=== PATIENT | female | born 1990 | race Caucasian/White ===

== ENCOUNTER → 2017-07-10 | Outpatient (CLI) | payer MEDICAID | LOC: MC.RAD 09:26 | DX: N63.10 Unspecified lump in the right breast, unspecified quadrant (principal) ==

== ENCOUNTER 2017-08-01 17:51 | Emergency (ER) | payer MEDICAID ==
[~2017-08-01] VITALS: Ht 157.5 cm; Wt 138.6 kg
[2017-08-01 18:01] VITALS: BP 160/77; TEMP 98
[2017-08-01] MEDS ORDERED: CEPHALEXIN500 M1 PO (20:09)
[2017-08-01 20:40] VITALS: PULSE 98
== END 2017-08-01 20:41 | disposition home or self-care (01) ==
LOC: COL.ER 17:51
DX: S91.115A Laceration without foreign body of left lesser toe(s) without damage to nail, initial encounter (principal); F17.210 Nicotine dependence, cigarettes, uncomplicated; Z23 Encounter for immunization; W22.8XXA Striking against or struck by other objects, initial encounter; Y92.009 Unspecified place in unspecified non-institutional (private) residence as the place of occurrence of the external cause

== ENCOUNTER 2017-08-11 09:15 | Emergency (ER) | payer MEDICAID ==
[~2017-08-11 09:15] MED LIST: CEPHALEXIN500 M1 PO
[2017-08-11 09:20] VITALS: BP 136/81; PULSE 99; TEMP 97
== END 2017-08-11 09:23 | disposition home or self-care (01) ==
LOC: COL.ER 09:15
DX: S91.115D Laceration without foreign body of left lesser toe(s) without damage to nail, subsequent encounter (principal); X58.XXXD Exposure to other specified factors, subsequent encounter